=== PATIENT | male | born 1965 | race Caucasian/White ===

== ENCOUNTER 2019-11-05 06:12 | Observation (INO) | payer BC ==
[2019-11-03 14:22] VITALS: BMI 32.1
[~2019-11-05 06:12] MED LIST: DEXAMETHASONE SOD PHOSPHATE 10 MG/ML 1 ML VIAL IV ONE; HEPARIN SODIUM,PORCINE 5,000 UNIT/ML 1 ML VIAL SQ ONE; LIDOCAINE 1% 20 ML VIAL (10MG/ML) FOR IV START INTRADERMA PRN; MIDAZOLAM 2 MG/2 ML VIAL IV PRN; ONDANSETRON 4 MG/2 ML VIAL IVP ONE; SCOPOLAMINE 1.5MG/72HR PATCH TRANSDERM ONE
[2019-11-05] MEDS: LACTATED RINGERS 1,000 ML IV SCH (06:57)
[2019-11-05] MEDS ORDERED: MIDAZOLAM 2 MG/2 ML VIAL IVP ONE (07:28)
[2019-11-05] MEDS ORDERED: fentaNYL (PF) 50 MCG/ML 2 ML AMP IVP ONE (07:29)
[2019-11-05] MEDS ORDERED: ROCURONIUM BROMIDE 10 MG/ML 10 ML VIAL IV ONE (07:46)
[2019-11-05] MEDS ORDERED: MIDAZOLAM 2 MG/2 ML VIAL ONE (07:46)
[2019-11-05] MEDS ORDERED: GLYCOPYRROLATE 0.2 MG/ML 2 ML VIAL ONE (07:46)
[2019-11-05] MEDS ORDERED: PROPOFOL 10 MG/ML 20 ML VIAL IV ONE (07:46)
[2019-11-05] MEDS ORDERED: LIDOCAINE 1% INJ 10MG/ML (20 ML MDV) ONE (07:46)
[2019-11-05] MEDS ORDERED: fentaNYL (PF) 50 MCG/ML 2 ML AMP ONE (07:46)
[2019-11-05] MEDS ORDERED: KETAMINE 10 MG/ML 20 ML VIAL ONE (07:46)
[2019-11-05] MEDS ORDERED: KETOROLAC 30 MG/ML 1 ML VIAL ONE (07:46)
[2019-11-05] MEDS ORDERED: NEOSTIGMINE 1 MG/ML 10 ML VIAL ONE (07:46)
[2019-11-05] MEDS ORDERED: DEXAMETHASONE SOD PHOSPHATE 4 MG/ML 1 ML VIAL ONE (07:46)
[2019-11-05] MEDS ORDERED: ROPIVACAINE 5 MG/ML 30 ML VIAL ONE (07:46)
--- NOTE | 2019-11-05 07:52 | P.GSHP ---
History of Present Illness H&P Date: 11/05/19 Chief Complaint: Incisional hernia This a 54-year-old male who's developed an incisional hernia. Patient has previous reversal of colostomy. He's developed a mass to the left of the umbilicus. The hernia is incarcerated. Past Medical History Past Medical History: Hypertension Additional Past Medical History / Comment(s): hx of diverticulitis History of Any Multi-Drug Resistant Organisms: None Reported Past Surgical History: Bowel Resection Additional Past Surgical History / Comment(s): had colostomy for 3 months 2013, Past Anesthesia/Blood Transfusion Reactions: No Reported Reaction Smoking Status: Former smoker - Past Family History Father Family Medical History: Cancer Additional Family Medical History / Comment(s): skin CA Medications and Allergies Home Medications Medication Instructions Recorded Confirmed Type Lisinopril [Zestril] 10 mg PO QAM 07/27/14 11/05/19 History Allergies Allergy/AdvReac Type Severity Reaction Status Date / Time No Known Allergies Allergy Verified 11/05/19 06:25 Surgical - Exam Vital Signs Temp Pulse Resp BP Pulse Ox 97.7 F 70 16 147/91 95 11/05/19 06:31 11/05/19 06:31 11/05/19 06:31 11/05/19 06:31 11/05/19 06:31 - General well developed, well nourished, no distress - Eyes PERRL - ENT normal pinna - Neck no masses - Respiratory normal expansion - Cardiovascular Rhythm: regular - Abdomen Abdomen: soft, non tender Assessment and Plan Assessment: Incisional hernia. We'll perform laparoscopic robotic system repair.
[2019-11-05] MEDS ORDERED: BUPIVACAINE (PF) 0.25% 30 ML VIAL SQ ONE (08:24)
[2019-11-05] MEDS ORDERED: LACTATED RINGERS 1,000 ML IV ONE ×3 (08:35→09:25)
[2019-11-05] MEDS ORDERED: ONDANSETRON 4 MG/2 ML VIAL IVP PRN (09:25)
[2019-11-05] MEDS ORDERED: NALOXONE 0.4 MG/ML 1 ML VIAL IV PRN (09:25)
[2019-11-05] MEDS ORDERED: ACETAMINOPHEN TAB 325 MG TAB PO PRN (09:25)
[2019-11-05] MEDS ORDERED: METOCLOPRAMIDE 5 MG/ML 2 ML VIAL IVP PRN (09:25)
[2019-11-05] MEDS ORDERED: HYDROmorphone 0.5 MG/0.5 ML SYRINGE IVP PRN (09:25)
--- NOTE | 2019-11-05 09:25 | P.OP ---
Date of Procedure: 11/05/19 Preoperative Diagnosis: Incarcerated incisional hernia Postoperative Diagnosis: Incarcerated incisional hernia Procedure(s) Performed: Diagnostic laparoscopy (Repair of incarcerated incisional hernia with mesh Partial omentectomy Anesthesia: JAVI Surgeon: Lazaro Smith Estimated Blood Loss (ml): 10 Pathology: other (Omentum) Condition: stable Description of Procedure: The patient's placed on the operating table in supine position. He received general anesthesia. His abdomen was prepped and draped usual sterile fashion. The skin incision sites were anesthetized 1% local Xylocaine. Using a 5 mm optical trocar the perineal cavity is entered in the right lateral position. After adequate insufflation the laparoscope placed back peritoneal cavity. There is extensive adhesions seen throughout the pleural cavity. At this point decided to convert the procedure to an open procedure. The skin was incised in the midline through his previous scar. Patient had incarcerated incisional hernia located just left of the umbilicus. Using left cautery and sharp dissection the incisional hernia sac was dissected free. The incisional hernia sac was opened and the incarcerated omentum was transected and sent to pathology. The fascial defect was closed using 0 Ethibond suture and stranding suture. A piece of Prolene mesh placed on top apparent and secured was traffic suture. A MEET drains placed over top the mesh and brought through separate stab incision. The Alda's fascia was closed with 2-0 Vicryl. Skin was closed with interrupted 3-0 Monocryl suture. Dermabond was applied. Patient top she will was sent to recovery room stable condition.
[2019-11-05] MEDS: HYDROmorphone 0.5 MG/0.5 ML SYRINGE IVP PRN ×4 (09:45→12:20)
--- NOTE | 2019-11-05 12:46 | P.ANPRN ---
Procedure Note - Anesthesia - Nerve Block Performed Bilateral Rectus Abdominis Single Time Out Performed: Yes Date of Procedure: 11/05/19 Procedure Start Time: :27 Procedure Stop Time: 07:37 Location of Patient: PreOp Indication: Acute Post-Operative Pain, Requested by Surgeon Sedation Type: Sedate with meaningful contact maintained Preparation: Sterile Prep Position: Supine Catheter: None Needle Types: Pajunk Needle Gauge: 21 Ultrasound used to visualize needle placement: Yes Ultrasound used to observe medication spread: Yes Injectate: 0.5% Ropivacaine (see comment for volume) (ropivacaine 0.5% 20 cc + decadron 4mg-- per side) Blood Aspirated: No Pain Paresthesia on Injection Noted: No Resistance on Injection: Normal Image Stored and Saved: Yes Events: Uneventful and Well Tolerated
[2019-11-05] MEDS: KETOROLAC 30 MG/ML 1 ML VIAL IVP SCH ×2 (14:24→19:12)
[2019-11-05] MEDS: HYDROcodone/APAP 5-325MG 1 EACH TAB PO PRN ×2 (15:11→20:53)
[2019-11-06] MEDS: KETOROLAC 30 MG/ML 1 ML VIAL IVP SCH ×3 (02:18→14:33)
[2019-11-06] MEDS: LACTATED RINGERS 1,000 ML IV SCH (02:54)
[2019-11-06 08:25] VITALS: BP 122/66; PULSE 70; RESP 17; TEMP 97.9
[2019-11-06] MEDS ORDERED: ENOXAPARIN 40 MG/0.4 ML SYRINGE SQ SCH (09:00)
--- NOTE | 2019-11-06 12:15 | P.DS ---
Providers Date of admission: 11/06/19 05:06 Expected date of discharge: 11/06/19 Attending physician: Lazaro Smith Consults: 11/05/19 09:25 Consult Physician Routine Consulting Provider: Nabeel Lynn Reason/Comments: Medical management Do you want consulting provider notified?: Yes Primary care physician: Nabeel Lynn Hospital Course: 54-year-old male who is status post diagnostic laparoscopy, repair of incarcerated incisional hernia with mesh, and partial omentectomy. Patient is doing well postoperatively without any immediate complications. Pain is co ntrolled with oral medications. Tolerating diet without nausea or vomiting. Vital signs have been stable. He is stable for discharge home today. Please see EMR for further hospital course details. Discharge diagnosis 1. Incarcerated incisional hernia Nurse practitioner note has been reviewed by physician. Signing provider agrees with the documented findings, assessment, and plan of care. Patient Condition at Discharge: Stable Plan - Discharge Summary Discharge Rx Participant: Yes New Discharge Prescriptions: New Hydrocodone/Acetaminophen [[place] 5-325] 1 tab PO Q6HR PRN 3 Days #12 tab PRN Reason: Pain No Action Lisinopril [Zestril] 10 mg PO QAM Discharge Medication List Lisinopril [Zestril] 10 mg PO QAM 07/27/14 [History] Hydrocodone/Acetaminophen [[place] 5-325] 1 tab PO Q6HR PRN 3 Days #12 tab 11/06/19 [Rx] Follow up Appointment(s)/Referral(s): Lazaro Smith MD [STAFF PHYSICIAN] - 11/13/19 3:10 pm Activity/Diet/Wound Care/Special Instructions: No driving while taking [place] No lifting over 10 pounds You may shower. No soaking or tub baths Very light activity until you are reevaluated at your follow up appointment with your surgeon Keep a log of MEET drain output. Bring with you to your follow up outpatient with Dr. Smith Discharge Disposition: HOME SELF-CARE
--- NOTE | 2019-11-10 16:54 | P.CONS ---
History of Present Illness - Reason for Consult Consult date: 11/06/19 Medical management hypertension Requesting physician: Lazaro Smith - Chief Complaint Incarcerated incisional hernia - History of Present Illness this is a 54-year-old gentleman history of hypertension, former nicotine dependence, Incarcerated incisional hernia, status post diagnostic laparoscopic repair with mesh and partial omentectomy.tolerated procedure well. Pain controlled. Passing flatus. Tolerating diet with no nausea vomiting or diarrhea. Denies chest pain, palpitations or shortness of breath. Denies lightheadedness, dizziness or focal deficits.Vital signs stable. Afebrile. Review of Systems Constitutional: Denied any fatigue denied any fever. Cardio vascular: denied any chest pain, palpitations Gastrointestinal denied any nausea vomiting Pulmonary: Denied any shortness of breath cough Neurologic denied any new focal deficits ROS Statement: Those systems with pertinent positive or pertinent negative responses have been documented in the HPI. ROS Other: All systems not noted in ROS Statement are negative. Past Medical History Past Medical History: Hypertension Additional Past Medical History / Comment(s): hx of diverticulitis History of Any Multi-Drug Resistant Organisms: None Reported Past Surgical History: Bowel Resection Additional Past Surgical History / Comment(s): had colostomy for 3 months 2013, Past Anesthesia/Blood Transfusion Reactions: No Reported Reaction Past Psychological History: No Psychological Hx Reported Smoking Status: Former smoker Past Alcohol Use History: Occasional Additional Past Alcohol Use History / Comment(s): quit 5 yrs ago, smoked 1/2ppd on and off from teens Past Drug Use History: None Reported - Past Family History Father Family Medical History: Cancer Additional Family Medical History / Comment(s): skin CA Medications and Allergies Home Medications Medication Instructions Recorded Confirmed Type Lisinopril [Zestril] 10 mg PO QAM 07/27/14 11/05/19 History Hydrocodone/Acetaminophen [[place] 1 tab PO Q6HR PRN 3 Days #12 tab 11/06/19 Rx 5-325] Allergies Allergy/AdvReac Type Severity Reaction Status Date / Time No Known Allergies Allergy Verified 11/05/19 06:25 Physical Exam Vitals: Vital Signs Temp Pulse Resp BP Pulse Ox 11/06/19 07:02 97.9 F 70 17 122/66 95 11/06/19 00:24 98.2 F 81 16 110/60 92 L 12/11/19 18:57 98.2 F 95 15 134/79 94 L Intake and Output 11/06/19 11/06/19 11/06/19 06:59 14:59 22:59 Intake Total 480 360 Output Total 30 Balance 450 360 Intake: Oral 480 360 Output: Drainage 30 Abdomen 30 PHYSICAL EXAM: VITAL SIGNS: [as above] GENERAL: sitting up in bed, no acute distress HEENT: Conjunctivae normal. eyes normal. oral mucosa moist NECK: No JVD. No thyroid enlargement. No LNs CARDIOVASCULAR: S1, S2 regular.. No murmur RESPIRATION: Breath sounds diminished in the bases. No rhonchi or crackles. No bronchial breathing. ABDOMEN: Soft, status post surgery.No guarding.no rigidity, Bowel sounds heard. LEGS: No edema. no swelling PSYCHIATRY: Alert and oriented X3, mood and affect normal. NERVOUS SYSTEM: Cranial N 2-12 grossly normal. Moves all 4 limbs. No focal deficits. Strength and sensation grossly intact. Skin: no rash Lymphatic system. No LN neck axilla. Assessment and Plan Assessment: incarcerated incisional hernia, status post repair of incarcerated incisional hernia with mesh, partial omentectomy Hypertension History of nicotine dependence Plan: Continue on current medication regime ,monitoring and symptomatic treatment. Pain management, diet advancement as per surgery/primary. Increase ambulation as tolerated. Aggressive pulmonary toileting with incentive spirometer reinforced. Discharge planning in progress for today as per surgery. Follow-up with PCP in 1 week. Thank you for the consult. The impression and plan of care has been dictated as directed. : I performed a history and examination of this patient, discussed the same with the dictator. I agree with the dictator's note ,documented as a scribe. Any additional findings or plans will be noted.
== END 2019-11-06 15:04 | disposition home or self-care (01) ==
LOC: OR 06:12 → 4SSUR 09:15 → OR 11-06 05:24
PROVIDERS: ADMIT Surgery; ATTEND Surgery
DX: K43.0 Incisional hernia with obstruction, without gangrene (principal); J94.8 Other specified pleural conditions; Z53.31 Laparoscopic surgical procedure converted to open procedure; I10 Essential (primary) hypertension; K08.409 Partial loss of teeth, unspecified cause, unspecified class; E66.9 Obesity, unspecified; Z68.32 Body mass index [BMI] 32.0-32.9, adult; Z98.890 Other specified postprocedural states; Z90.49 Acquired absence of other specified parts of digestive tract; Z87.19 Personal history of other diseases of the digestive system; Z87.891 Personal history of nicotine dependence; Z79.899 Other long term (current) drug therapy; Z80.8 Family history of malignant neoplasm of other organs or systems
CPT/HCPCS: 49561; 49568; 64488; 88305; G0378; C1781; J2250; J1100 ×2; J2710; J0690; J2405; J2001; J1650; J3010; J1885 ×2; J2795; J2704; J1170

== ENCOUNTER 2021-03-04 09:24 | Emergency (ER) | payer BC ==
[2021-03-04 09:28] VITALS: RESP 18
--- NOTE | 2021-03-04 10:25 | XR ---
EXAMINATION TYPE: XR chest 1V DATE OF EXAM: 03/04/2021 COMPARISON: NONE HISTORY: 55-year-old male with cough TECHNIQUE: Single frontal view of the chest is obtained. FINDINGS: Heart upper limits of normal size. Aorta and pulmonary vasculature within normal limits. Mild patchy interstitial opacities especially in the periphery of the lungs. No pleural effusion. IMPRESSION Unable to exclude early patchy peripheral interstitial infiltrates. Correlate for possible early atyp ical/COVID pneumonia.
--- NOTE | 2021-03-04 10:58 | ED ---
URI HPI - General Chief Complaint: Upper Respiratory Infection Stated Complaint: covid+/SOB Time Seen by Provider: 03/04/21 09:48 Source: patient, RN notes reviewed Mode of arrival: ambulatory Limitations: no limitations - History of Present Illness Initial Comments: 55-year-old male presents emergency Department chief complaint of covid. Patient states that he tested positive with the last week. Patient states he started symptoms at day. Patient states it is felt worse last couple days and states that he sent for infusion. Tried to set up with [facility] but was unsuccessful. Patient does have a history of hypertension on medications. Patient went of mild shortness of breath, body aches, chills. No significant diarrhea constipation no significant vomiting. - Related Data Home Medications Medication Instructions Recorded Confirmed lisinopriL [Zestril] 10 mg PO QAM 07/27/14 11/05/19 Previous Rx's Medication Instructions Recorded Hydrocodone/Acetaminophen [[place] 1 tab PO Q6HR PRN 3 Days #12 tab 11/06/19 5-325] Allergies Allergy/AdvReac Type Severity Reaction Status Date / Time No Known Allergies Allergy Verified 03/04/21 09:26 Review of Systems ROS Statement: Those systems with pertinent positive or pertinent negative responses have been documented in the HPI. ROS Other: All systems not noted in ROS Statement are negative. Past Medical History Past Medical History: Hypertension Additional Past Medical History / Comment(s): hx of diverticulitis History of Any Multi-Drug Resistant Organisms: None Reported Past Surgical History: Bowel Resection Additional Past Surgical History / Comment(s): had colostomy for 3 months 2013, Past Anesthesia/Blood Transfusion Reactions: No Reported Reaction Past Psychological History: No Psychological Hx Reported Smoking Status: Never smoker Past Alcohol Use History: None Reported, Occasional Past Drug Use History: None Reported - Past Family History Father Family Medical History: Cancer Additional Family Medical History / Comment(s): skin CA General Exam Limitations: no limitations General appearance: alert, in no apparent distress Head exam: Present: atraumatic, normocephalic, normal inspection Eye exam: Present: normal appearance, PERRL, EOMI. Absent: scleral icterus, conjunctival injection, periorbital swelling ENT exam: Present: normal exam, normal oropharynx, mucous membranes moist Neck exam: Present: normal inspection, full ROM. Absent: tenderness, meningismus, lymphadenopathy Respiratory exam: Present: normal lung sounds bilaterally. Absent: respiratory distress, wheezes, rales, rhonchi, stridor Cardiovascular Exam: Present: regular rate, normal rhythm, normal heart sounds. Absent: systolic murmur, diastolic murmur, rubs, gallop, clicks GI/Abdominal exam: Present: soft, normal bowel sounds. Absent: distended, tenderness, guarding, rebound, rigid Course Vital Signs 03/04/21 09:26 Temperature 98.5 F Pulse Rate 86 Respiratory 18 Rate Blood Pressure 112/71 O2 Sat by Pulse 97 Oximetry Medical Decision Making - Medical Decision Making Patient's unsure patient is 97. Patient is no sign distress. Patient was given monoclonal antibodies will be discharged stable condition. Disposition Clinical Impression: COVID-19 Disposition: HOME SELF-CARE Condition: Stable Instructions (If sedation given, give patient instructions): Coronavirus Disease 2019 (COVID-19) Additional Instructions: Please return to the Emergency Department if symptoms worsen or any other concerns. Is patient prescribed a controlled substance at d/c from ED?: No Referrals: Nabeel Lynn DO [Primary Care Provider] - 1-2 days Time of Disposition: 10:58
[2021-03-04] MEDS ORDERED: BAMLANIVIMAB (EUA) 700 MG, ETESEVIMAB (EUA) 1,400 MG in SODIUM CHLORIDE 0.9% 50 ML IVPB ONE (11:45)
[2021-03-04] MEDS ORDERED: SODIUM CHLORIDE 0.9% 50 ML IVPB ONE (11:45)
[2021-03-04 13:20] VITALS: BP 103/64; PULSE 65; TEMP 98.2
== END 2021-03-04 13:20 | disposition home or self-care (01) ==
LOC: EC 09:24
DX: U07.1 COVID-19 (principal); I10 Essential (primary) hypertension
CPT/HCPCS: 71045; 99284; 96365; Q0245